=== PATIENT | male | born 1945 | race Caucasian/White ===

== ENCOUNTER 2019-10-03 06:16 | Inpatient (IN) | payer OTHER, SELFPAY ==
[2019-09-26 13:58] VITALS: BMI 30.2
[2019-10-03] VITALS (14 sets, daily range): BP systolic 101–153; BP diastolic 44–90; PULSE 57–110; RESP 12–18; TEMP 36.2–37.1; O2SAT 92–96; BMI 30.2
--- NOTE | 2019-10-03 | DI.RAD.S_ITS ---
PROCEDURE: XR PELVIS 1-2V INDICATIONS: TOTAL HIP ARTHROPLASTY - ANTERIOR HIP RIGHT TECHNIQUE: 3 intraoperative fluoroscopic views of the lower pelvis acquired. COMPARISON: [facility], CR, XR HIP W PEL IF DONE RT 2V, 10/03/2019, 11:28. [facility], CR, XR PELVIS WITH LATERAL HIP RIGHT, 07/11/2019, 8:50. FINDINGS: Patient is status post right total hip arthroplasty, with hardware components in expected positions. The hip joint appears congruent. The visualized bony structures appear intact. Soft tissues: Metallic clips are noted over the region of the lower midline pelvis/prostate. No suspicious soft tissue densities. IMPRESSION: Status post right total hip arthroplasty without acute hardware complication. Dictated by: Srinath Bobo M.D. on 10/03/2019 at 14:33 Approved by: Srinath Bobo M.D. on 10/03/2019 at 14:36
--- NOTE | 2019-10-03 06:00 | DI.RAD.S_ITS ---
PROCEDURE: XR HIP W PEL IF DONE RT 2V INDICATIONS: anterior DESTINY, right TECHNIQUE: AP pelvis and lateral view of the right hip acquired. COMPARISON: [facility], CR, XR PELVIS WITH LATERAL HIP RIGHT, 07/11/2019, 8:50. [facility], CR, XR PELVIS 1-2V, 10/03/2019, 9:26. FINDINGS: Bones: Patient is status post right hip arthroplasty, with hardware components in expected positions. The hip joint appears congruent. The visualized bony structures appear intact. Soft tissues: Overlying postoperative changes are noted. No suspicious soft tissue densities. Multiple metallic seeds project over the prostate. IMPRESSION: Spica postsurgical change for right hip arthroplasty. Dictated by: Amie Dent MD, PhD on 10/03/2019 at 18:14 Approved by: Amie Dent MD, PhD on 10/03/2019 at 18:15
[2019-10-03] MEDS: ACETAMINOPHEN 325 MG TABLET 975 MG PO (06:49)
[2019-10-03] MEDS: PREGABALIN 75 MG CAPSULE PO (06:50)
[2019-10-03] MEDS: CELECOXIB 200 MG CAPSULE PO (06:50)
[2019-10-03] MEDS: VANCOMYCIN 1,000 MG/200 ML PIGGYBACK 200 MG IV (07:11)
--- NOTE | 2019-10-03 07:46 | PM.PREOP ---
Pre-operative Note Interval Note History & Physical reviewed/Exam performed by Physician: Yes Changes to H&P: No
--- NOTE | 2019-10-03 07:51 | P.OP_ITS ---
Operative Date/Time/Diagnoses Date of procedure: 10/03/19 Time of procedure: 07:59 Pre-op diagnosis: right hip OA Post-op diagnosis: same Procedure & Clinicians Procedure: Right total hip arthroplasty anterior approach Same procedure as scheduled: Yes Indications: The patient has had progressively worsening right hip pain with radiographic changes consistent with arthritis. Non-operative management has failed and the patient has requested total hip replacement. The risks, benefits and alternatives to surgery were discussed with the patient prior to proceeding. Risks discussed included, but were not limited to, failure to relieve pain, leg length discrepancy, dislocation, stiffness, infection, nerve damage, deep venous thrombosis, pulmonary embolism, stroke, coma, heart attack, permanent paralysis and , as well as the potential need for eventual revision of the prosthetic. Surgeon: Nenita Carpio Product Development Coordinator: Miryam Massey Anesthesia Type: General and Spinal Operative Notes Findings: Severe right hip osteoarthritis, good bone, adequate stability Closure Type: primary Specimen(s): none sent Prosthetic devices, grafts, tissues, transplants, or devices: Carpio and Nephew 58 R3, anthology size 8 standard offset, +0 oxinium, one 15mm screw Estimated Blood Loss (mL): 250 Blood products transfused: none Procedure in detail: The patient was brought to the operating room. Patient was carefully positioned in the supine position. Time-out was performed and antibiotics were given. Anesthesia was induced. He was positioned in the on the table in order to allow hyperextension of the hip. The right lower extremity was prepped and draped in a standard sterile fashion. An anterior right hip incision was made 1 fingerbreadth lateral to the anterior superior iliac spine and extended distally towards the greater trochanter. Dissection was carried out through skin and subcutaneous tissues. The skin and subcutaneous tissues were carefully injected with bupivacaine with epi. Superficial hemostasis was achieved. The fascia over the tensor fascia cinda was defined and incised with a knife. Two Allis clamps were used to grasp the fascia. Tensor fascia cinda was retracted laterally. A gelpi retractor was placed. Dissection was carried out down along the neck. The circumflex vessels were carefully identified and cauterized with the Aqua Mantis. There was good visualization of the femoral neck. A Cobra was placed superior to the neck and the gluteus fibers were carefully stripped from that superior aspect of the capsule. A 2nd retractor was placed along the inferior aspect of the neck. The rectus insertion along the capsule was partially released. A 3rd retractor that was then gently placed over the rim of the acetabulum under the rectus. Capsule was carefully incised and released from the intertrochanteric line circumferentially superior to the mid sagittal line and inferiorly to the mid sagittal line until the lesser trochanter was palpable. A tag stitch was placed both in the superior and inferior limb of the capsular insertion. Along the acetabulum capsule was also released up to the mid sagittal 12:00 position. A portion of the labrum was resected. A saw was used to perform an osteotomy at the level of the intertrochanteric line and the junction of the superior femoral neck leaving approximately 1 finger breath of residual inferior neck above the lesser trochanter. A 2nd cut was made along the femoral neck at the base of the head and a napkin ring of neck was removed. Corkscrew was placed in the femoral head and the head was removed without difficulty. Retractors were then repositioned around the acetabulum. Residual labrum was resected and additional osteophytes were removed. A reamer that was 4 mm below the templated size was placed by hand in the acetabulum and it was reamed to centralize the acetabulum. It was then reamed up to 2 under the templated size and fluoroscopy was brought in to confirm the position of the reaming and depth of reaming. I reamed 1 under the anticipated size. A trial cup was placed and noted that it was appropriately sized and fluoroscopy confirmed position and depth. The component was open and inserted without difficulty fluoroscopic imaging was used to confirm that the cup had been adequately seated and was well positioned. A single screw was placed to further stabilize the cup. The cup was tested and noted to be stable. Attention was then directed to the femur. The femur was gently hyperextended additional capsular release was performed as needed in order to allow adequate visualization of the proximal femur with elevation of the femur. Patient was placed in a hyperextended slightly adducted position with maximum external rotation. Box osteotome was used to check for any residual neck as well as sclerotic bone along the trochanter. [place] pepper was placed in the femur. Additional broaching was performed. Canal finder was used to determine the alignment of the canal and position. Size 1 broach was placed. The canal was then appropriately broached up to the templated size as long as there was adequate stability of the broach and serial advancement of the broach without excessive impingement. Specific attention was directed at avoiding varus attempting to direct the distal aspect of the broach more anteriorly and avoiding excessive anteversion. Trial reduction showed acceptable range of motion, good stability, no posterior impingement, scientologist of leg length and appropriate lateral shuck. I also hyperflexed the hip and checked that there was no impingement anteriorly and there was good stability with flexion, adduction and internal rotation. Marcaine and Exparel were injected. The stem was placed without difficulty. Repeat trial reduction and x-ray showed acceptable overall position, length, and no evidence of the femoral fracture. Final head was placed. Wound was meticulously irrigated with normal saline. The hip was reduced and additional Exparel and Marcaine were injected. The capsule was closed with interrupted nonabsorbable sutures. The fascia of the tensor was closed with interrupted and running Vicryl. No drain was placed. Any tensor fascia cinda muscle that appeared to be contused or injured which was a minimal amount was carefully resected. Capsule around the tensor was injected with Exparel and Marcaine. The skin was closed with barbed stitches for the subcutaneous tissue and skin. We also used surgical glue. The wound was dressed sterilely. Brief Betadine soak was also used and was meticulously irrigated with normal saline. Patient was transferred to recovery room in satisfactory condition. Complications: none Post-operative Condition: stable Disposition: Acute Care Plan for aftercare: The patient will be maintained on a standard total hip replacement protocol with weight bearing as tolerated and anterior hip precautions. The patient will receive Aspirin and sequential compression devices for DVT prophylaxis. The patient will be discharged home when safe for the home environment.
[2019-10-03] MEDS: CEFAZOLIN 2 GM/100 ML FROZ.PIGGY IV ×3 (08:10→23:27)
[2019-10-03] MEDS: TRANEXAMIC ACID 1,000 MG VIAL 2000 MG INJ ×2 (08:30→11:00)
--- NOTE | 2019-10-03 08:39 | SUR.OPER ---
Supine on padded [place] table with bilateral legs secured in padded positioning boots and suspended in positioning spars, operative leg in traction per surgeon. Head on one pillow. Arm on non-operative side secured on padded armboard <90 degrees abduction. Arm on operative side padded and resting across chest then secured with tape over sheet. Padded perineal post in place per surgeon.
[2019-10-03] MEDS: BUPIVACAINE 0.25% W/ EPI (PF) 10 ML VIAL 60 ML INJ (08:44)
[2019-10-03] MEDS: BUPIVACAINE LIPOSOME 266 MG/20 ML VIAL INJ (10:48)
[2019-10-03] MEDS: LACTATED RINGERS 1,000 ML 125 ML IV ×2 (12:24→21:41)
--- NOTE | 2019-10-03 12:54 | PC.NURSE ---
Addendum entered by Anais Givens R.N. 10/03/19 14:42: Assumed care of this patient from KAREN Cherry. Patient resting in bed with eyes closed at this time. Appears comfortable, respirations regular and unlabored. Room air w/ cont pulse ox in place. No s/sx distress or discomfort. Call light within reach, bed alarm on. Original Note: Patient to room 1210 alert, oriented denies pain, unable to wiggle toes at this time. PPP, scd's on. Pt oriented to room and call light bed alarm on.
--- NOTE | 2019-10-03 14:35 | PT.IIE ---
Current Diagnoses Unilateral primary osteoarthritis, right hip (10/03/19) Surgery Performed Operation Date: 10/03/19 07:45 Actual Procedures p Total Hip Arthroplasty/Anterior Approach(Right) - Nenita Carpio MD Surgical History (Last Updated 09/26/19 @ 14:22 by Suma Fuentes, RN) History of colonoscopy (Acute) History of prostate surgery (Acute ~01/2019) Hx of neck surgery (Acute ~1969) S/P nasal surgery (Acute) Medical History (Last Updated 09/26/19 @ 14:24 by Suma Fuentes RN) Blindness of left eye (Acute) Constipation (Acute) Enlarged prostate (Acute) Glaucoma (Acute) HLD (hyperlipidemia) (Acute) Hx of migraines (Acute) Neuropathy (Acute) Osteoarthritis (Acute) Sensitive skin (Acute) Sleep apnea (Acute) Physical Therapy Inpatient Evaluation/Re-Eval M1 PT/OT-IP Prior Functional Status Start: 10/03/19 16:26 Freq: NEEDED Status: Active Protocol: Document 10/03/19 14:35 AB (Rec: 10/03/19 16:42 AB [id number]) Medical Review Prior Functional Status Medical History Reviewed Yes Communication able to make needs known Mobility and Gait pt stated that he is independent with all mobilities and ambulation without AD Social History Household Members spouse Living Arrangements House Number of Floors (Floors) Two Floors Number of Stairs To Enter/Railing? pt stays on the main level of the house has a ramp to enter Home Environment Standard Height Toilet,Walk in Shower,Ramp Home Equipment Front Wheel Walker,Straight Cane,Raised Toilet Seat w/ Armrests,Shower Seat with Backrest,Hand Held Shower,Grab Bars In Shower M2 PT-IP Current Condition Start: 10/03/19 16:26 Freq: NEEDED Status: Active Protocol: Document 10/03/19 14:35 AB (Rec: 10/03/19 16:42 AB [id number]) Physical Therapy Current Condition Current Condition Evaluation Date 10/03/19 Treatment Diagnosis s/p R DESTINY anterior approach; difficulty in walking Onset Date 10/03/2019 Precautions Anterior Hip Precautions No Hip Extension,No Hip External Rotation Weight Bearing Status Weight Bearing Status Weight Bear as Tolerated Allowed Weight Bearing Amount (enter % WBAT RLE or #) (%) M3 PT-IP Subjective Start: 10/03/19 16:26 Freq: NEEDED Status: Active Protocol: Document 10/03/19 14:35 AB (Rec: 10/03/19 16:42 AB [id number]) Subjective Physical Therapy Visit Type Type Initial Evaluation Visit Start Time 14:35 Visit Stop Time 15:14 Total Visit Minutes 39 Number of COUNTRY DIRECTOR Visits 0 Physical Therapy Visit Comments Patient Comments pt agreeable to do PT Therapy Pain Assessment Pain Present Pain Present Denied Pain M4 PT-IP Mobility and Gait Start: 10/03/19 16:26 Freq: NEEDED Status: Active Protocol: Document 10/03/19 14:35 AB (Rec: 10/03/19 16:42 AB [id number]) PT-Bed Mobility Assessment Supine to Sit Supine to Sit Standby Assistance Sit to Supine Sit to Supine Standby Assistance Scooting Scooting to Edge of Bed Standby Assistance PT-Transfer Assessment Sit to and From Stand Sit to and from Stand Maximum Assistance,1 Person Assistance,Use of Upper Extremities Equipment Transfer Assistive Device Gait Belt,Front Wheeled Walker Orthotic/Prosthetic Devices or Brace: No Comments Mobility Comments BP in supine 133/83. completed bed mobility supine to sit SBA. pt was able to sit on EOB CGA with increase initial posterior leaning requiring min A and cues to correct. pt c/o lightheadedness. BP 135/87. pt completed sit to stand max A and cues. presents with unsteady standing and stated that L foot feels funny. completed marching in place but unable to ambulate much in room. instructed to take side steps towards HOB requiring mod to max A and cues. pt completed sit to supine SBA and cues. positioned pt on the bed. call light and table placed within reach. Gait Assessment Gait Gait Assistance Required: Moderate Assistance,Maximum Assistance,1 Person Assist Distance (Feet) 3 Able to Maintain Weight Bearing Status Yes During Gait Assistive Devices Assistive Device Gait Belt,Front Wheeled Walker Orthotic/Prosthetic Devices or Brace: No Gait Deviations General Gait Pattern Antalgic,Decreased Stride Length,Decreased Feet Clearance Factors Limiting Gait Function Factors Limiting Gait Function Decreased Activity Tolerance, Decreased Sensation,Decreased Strength,Limited Range of Motion,Pain,Poor Balance,Poor Safety Awareness Comments Gait Comments pls refer to mobility section for details PT-Balance Assessment Sitting Balance and Reactions Static Sitting Balance Ability Good Dynamic Sitting Balance Ability Fair Standing Balance and Reactions Static Standing Balance Ability Fair Dynamic Standing Balance Ability Poor Device Used FWW M5 PT-IP Objective Assessments Start: 10/03/19 16:26 Freq: NEEDED Status: Active Protocol: Document 10/03/19 14:35 AB (Rec: 10/03/19 16:42 AB [id number]) Orientation Orientation/Cognition Level of Alertness Alert Orientation Name,Age,Place,Situation Language Function Ability Hard of Hearing Safety Awareness Decreased Safety Awareness Memory Description Short Term Impaired Gross Range of Motion Lower Extremity ROM Assessment Within Functional Limits Strength Lower Extremity Strength Assessment Right Impaired Hip 3+/5 Knee 3/5 Coordination Assessment Gross Coordination Gross Coordination WNL Sensation Assessment Sensation Gross Sensation Left LE Impaired Sensation Description Numbness Muscle Tone Muscle Tone WNL Yes M6 PT-IP Treatment Start: 10/03/19 16:26 Freq: NEEDED Status: Active Protocol: Document 10/03/19 14:35 AB (Rec: 10/03/19 16:42 AB [id number]) Physical Therapy Treatment Exercises Exercises Quad Sets,Heel Slides Education Education Provided Precautions,Weight Bearing Status,Post-Op Packet,Safety M7 PT-IP Assessment and Plan Start: 10/03/19 16:26 Freq: NEEDED Status: Active Protocol: Document 10/03/19 14:35 AB (Rec: 10/03/19 16:42 AB [id number]) PT Summary Assessment and Plan Potential Rehabilitation Potential Good Status of Condition at Evaluation Evolving Summary Impairments Pain,ROM,Strength,Balance, Coordination,Sensation,Tone, Cognition,Bed Mobility, Transfers,Gait,Activity Tolerance Assessment Summary pt requiring mod to max A with mobility using FWW. c/o not having complete sensation back on L foot affecting mobility and level of assistance. pt also c/o lightheadedness and unable to tolerate much activity. d/c plan depending on progress and if spouse will be able to prove the necessary assistance pt requires. will continue to assess progress. Goals Bed Mobility Goal Independent Transfer Goal Standby Assistance,Front Wheeled Walker Gait Goal Standby Assistance,Front Wheel Walker Gait Distance 200 Frequency of Treatment Frequency Of Treatment Twice a Day Treatment Plan Physical Therapy Treatment Plan Bed Mobility Training,Transfer Training,Gait Training, Therapeutic Exercise,Balance Retraining,Post Op Education, Discharge Planning,Hot or Cold Pack,Neuromuscular Re-ed, Coordination Retraining,Manual Therapy Other Recommendations and Next Treatment ambulation, caregiver training Focus Recommendations To Nursing Amount of Assist Needed 1 Person Assist Discharge Recommendations PT Discharge Recommendations Home with Assistance, Outpatient PT Transportation Needs at Discharge Private Vehicle
[2019-10-03] MEDS: ACETAMINOPHEN 325 MG TABLET 650 MG PO ×2 (16:49→21:43)
[2019-10-03] MEDS: IBUPROFEN 400 MG TABLET PO ×3 (16:50→23:27)
--- NOTE | 2019-10-03 19:23 | PC.NURSE ---
1720- Pt lying in bed with at bedside, denies pain to right anterior hip at this time, odalis flores CDI, CMS +, pp+, pt reports right ankle is a bit numb. Pt unknowingly urinated in bed, linens changed and placed brief. Left hand LR @ 125, 96%RA, LS clear, BT+ flatus+, tolerated dinner. Pt up with PT aroud 1600, side stepped, got a little lightheadedness, back to bed, denies nausea. Call light in reach and bed alarm on.
[2019-10-03] MEDS: ASPIRIN EC 81 MG TABLET PO (21:43)
[2019-10-03] MEDS: DOCUSATE 100 MG CAPSULE PO (21:45)
[2019-10-03] MEDS: diphenhydrAMINE 25 MG TABLET 50 MG PO (21:45)
[2019-10-04 05:00] VITALS: BP 115/78; PULSE 84; RESP 16; TEMP 37; O2SAT 97
[2019-10-04] MEDS: IBUPROFEN 400 MG TABLET PO ×2 (05:07→09:47)
--- NOTE | 2019-10-04 05:37 | PC.NURSE ---
Bladder scan revealed estimated 821ml, straight cath patient at 0535 for 1075ml. Patient reports abdominal relief from catheterization.
[2019-10-04 06:32] LABS: Hematocrit 41.5 % (41-53); Hemoglobin 13.9 g/dL (13.5-17.5)
--- NOTE | 2019-10-04 07:33 | PM.PNPO.1 ---
Subjective Subjective Date Patient Seen: 10/04/19 Time Patient Seen: 07:33 Interval history: POD #1 s/p RTHA with Dr. Carpio. Overnight patient was unable void, strait cath x1 1075 cc. Per patient, hx of recent unknown urology surgery to treat frequent voiding. Complains of minimal pain in right hip. Has mobilized well with PT. Denies fever, chills, chest pain, shortness of breath, pain in calves Exam Vital Signs (past 8 hours): - 10/04/19 05:00 Temperature 98.6 F Pulse Rate 84 Respiratory Rate 16 Blood Pressure 115/78 Pulse Oximetry 97 Oxygen Delivery Method Room Air Oxygen Flow Rate 0 Narrative Exam Narrative: 74 yo M is lying comfortably in bed, in no apparent distress. A&Ox3. Dressing CDI, SCDs in place. Sensory function grossly intact to light touch in LE BL. Able to actively dorsiflex/plantar flex BL. Dorsalis pedis 2+ BL. Calves warm, soft, compressible, non tender to palpation. Objective Labs Result Diagrams: 10/04/19 06:13 Labs: Laboratory Results - last 24 hr 10/04/19 06:13 Hgb 13.9 Hct 41.5 Assessment & Plan Post-op Postoperative Procedures: Procedures Operation Date: 10/03/19 07:45 Actual Procedures Side Surgeon p Total Hip Arthroplasty/Anterior Approach Right Nenita Bernardo Carpio MD Postoperative day: 1 Postoperative status: urinary retention Postoperative plan: discharge Postoperative plan narrative: If patient is able to void without difficulty or assistance he may be discharged home today Has prescription for oxycodone at home Continue SCDs and ASA 81mg BID for DVT prophylaxis Quality VTE Deep Vein Thrombosis/Pulmonary Embolism Present on Admission: No
[2019-10-04 07:55] VITALS: BP 147/83; PULSE 87; RESP 18; TEMP 36.6; O2SAT 98
--- NOTE | 2019-10-04 09:20 | PT.IPTN ---
Current Diagnoses Unilateral primary osteoarthritis, right hip (10/03/19) Surgery Performed Operation Date: 10/03/19 07:45 Actual Procedures p Total Hip Arthroplasty/Anterior Approach(Right) - Nenita Carpio MD Physical Therapy Treatment Note M2 PT-IP Current Condition Start: 10/03/19 16:26 Freq: NEEDED Status: Active Protocol: Document 10/03/19 14:35 AB (Rec: 10/03/19 16:42 AB [id number]) Physical Therapy Current Condition Current Condition Evaluation Date 10/03/19 Treatment Diagnosis s/p R DESTINY anterior approach; difficulty in walking Onset Date 10/03/2019 Precautions Anterior Hip Precautions No Hip Extension,No Hip External Rotation Weight Bearing Status Weight Bearing Status Weight Bear as Tolerated Allowed Weight Bearing Amount (enter % WBAT RLE or #) (%) M3 PT-IP Subjective Start: 10/03/19 16:26 Freq: NEEDED Status: Active Protocol: Document 10/04/19 08:49 LJ (Rec: 10/04/19 09:20 LJ [id number]) Subjective Physical Therapy Visit Type Type Treatment Note Visit Start Time 08:49 Visit Stop Time 09:12 Total Visit Minutes 23 Number of [employer] Visits 1 Physical Therapy Visit Comments Patient Comments pt agreeable to do PT. in room with pt Therapy Pain Assessment Pain Present Pain Present Denied Pain M4 PT-IP Mobility and Gait Start: 10/03/19 16:26 Freq: NEEDED Status: Active Protocol: Document 10/04/19 08:49 LJ (Rec: 10/04/19 09:20 LJ [id number]) PT-Transfer Assessment Sit to and From Stand Sit to and from Stand Independent,Use of Upper Extremities Equipment Transfer Assistive Device Gait Belt,Front Wheeled Walker Comments Mobility Comments Pt sitting in chair. Denied pain of dizziness or lightheadedness. Transfer from chair independent with use of UEs and returned to sitting same method. No assist or cues required Gait Assessment Gait Gait Assistance Required: Standby Assistance Distance (Feet) 200 Able to Maintain Weight Bearing Status Yes During Gait Assistive Devices Assistive Device Gait Belt,Front Wheeled Walker Orthotic/Prosthetic Devices or Brace: No Gait Deviations General Gait Pattern Antalgic,Decreased Stride Length,Decreased Feet Clearance Factors Limiting Gait Function Factors Limiting Gait Function Decreased Activity Tolerance, Decreased Sensation,Decreased Strength,Limited Range of Motion,Pain,Poor Balance,Poor Safety Awareness Comments Gait Comments Pt able to state precautions as he was ambulating in hallway. Gait has improved with less antalgia. Demonstrated proper use of FWW and body mechanics during ambulation. present during ambulation M5 PT-IP Objective Assessments Start: 10/03/19 16:26 Freq: NEEDED Status: Active Protocol: Document 10/03/19 14:35 AB (Rec: 10/03/19 16:42 AB [id number]) Orientation Orientation/Cognition Level of Alertness Alert Orientation Name,Age,Place,Situation Language Function Ability Hard of Hearing Safety Awareness Decreased Safety Awareness Memory Description Short Term Impaired Gross Range of Motion Lower Extremity ROM Assessment Within Functional Limits Strength Lower Extremity Strength Assessment Right Impaired Hip 3+/5 Knee 3/5 Coordination Assessment Gross Coordination Gross Coordination WNL Sensation Assessment Sensation Gross Sensation Left LE Impaired Sensation Description Numbness Muscle Tone Muscle Tone WNL Yes M6 PT-IP Treatment Start: 10/03/19 16:26 Freq: NEEDED Status: Active Protocol: Document 10/04/19 08:49 LJ (Rec: 10/04/19 09:20 LJ [id number]) Physical Therapy Treatment Education Education Provided Precautions,Safety M7 PT-IP Assessment and Plan Start: 10/03/19 16:26 Freq: NEEDED Status: Active Protocol: Document 10/04/19 08:49 LJ (Rec: 10/04/19 09:20 LJ [id number]) PT Summary Assessment and Plan Potential Rehabilitation Potential Good Status of Condition at Evaluation Stable Summary Impairments Pain,ROM,Strength,Balance, Coordination,Activity Tolerance Assessment Summary Pt is much improved since yesterday. He is independent to SBA for all transfers and gait. Has met PT goals and is able to d/c home with assist from . Goals Bed Mobility Goal Independent Transfer Goal Standby Assistance,Front Wheeled Walker Gait Goal Standby Assistance,Front Wheel Walker Gait Distance 200 Frequency of Treatment Frequency Of Treatment Twice a Day Treatment Plan Physical Therapy Treatment Plan Bed Mobility Training,Transfer Training,Gait Training, Therapeutic Exercise,Balance Retraining,Post Op Education, Discharge Planning,Hot or Cold Pack,Neuromuscular Re-ed, Coordination Retraining,Manual Therapy Recommendations To Nursing Amount of Assist Needed 1 Person Assist Discharge Recommendations PT Discharge Recommendations Home with Assistance, Outpatient PT Transportation Needs at Discharge Private Vehicle
[2019-10-04] MEDS: DOCUSATE 100 MG CAPSULE PO (09:46)
[2019-10-04] MEDS: ASPIRIN EC 81 MG TABLET PO (09:47)
[2019-10-04] MEDS: INFLUENZA VACCINE 0.5 ML SYRINGE IM (09:48)
[2019-10-04] MEDS: ACETAMINOPHEN 325 MG TABLET 650 MG PO (09:48)
--- NOTE | 2019-10-04 10:46 | PC.NURSE ---
Patient able to void without difficulty this morning. Aquacel dressing remains CDI. Patient remains pain free. Discharge instructions and home care handouts reviewed with patient and his . They state understandning and have no further questions or concerns at his time. IV removed intact by SN. Patient states he already has his prescriptions picked up preop and that his follow up appointment is scheduled. Patient escorted out via wheelchair with all belongings to be discharged to home with his .
--- NOTE | 2019-10-04 12:37 | CM.IDA ---
Discharge Planning/Care Management CM Discharge Assessment Start: 10/04/19 12:32 Freq: Status: Discharge Protocol: Document 10/04/19 12:33 CATHERINE (Rec: 10/04/19 12:37 CATHERINE [id number]) Discharge Planning Assessment Assigned [employer] Developer GEOFFREY Calvert DPOA/Assigned Designee Name Althea Lucero, spouse Contact Information [phone] Advance Directives? Yes Advance Directives on File No History Provided By Patient Prior Living Arrangements House Household Members spouse Independent with ADL's Yes Is patient alert and oriented? Yes Barriers to Discharge No Comment Pt is being DC home today and has been cleared by therapy for same. Pt is POD#1 from hip surgery w/Dr Carpio Payer: [facility] Met w/pt and his before he left the building. Pt feeling confident about his DC home and spouse agrees, they both feel there is good support for home plan and the only thing pt is worried about is the long drive home to [place]. P: DC home w/spouse and family support, outpt PT via pov GEOFFREY Osborne Discharge Plan Home Transportation Arrangement Family Referrals Initiated None needed Review Status In Process
== END 2019-10-04 10:49 | disposition home or self-care (01) | DRG 470 ==
PROVIDERS: Admitting Provider Orthopaedic Surgery; Referring Provider Psychiatry & Neurology Neurology; Visit Provider Orthopaedic Surgery
PROC: 0SR902A Replacement of Right Hip Joint with Metal on Polyethylene Synthetic Substitute, Uncemented, Open Approach (ICD-10-PCS; CPT 27130; principal; 2019-10-03 07:45)
DX: M16.11 Unilateral primary osteoarthritis, right hip (principal); Z23 Encounter for immunization
CPT/HCPCS: 36415; 72170; 73502; 76000; 85014; 85018; 90471; 90656; 97116; 97162; C1776; C9290; J0171; J0690; J1100; J2250; J2274; J2405; J2704; J3010; Q2038